=== PATIENT | male | born 1970 | race Caucasian/White ===

== ENCOUNTER 2016-11-07 20:44 | Emergency (ER) | payer BC ==
[~2016-11-07] VITALS: Ht 167.6 cm; Wt 76.2 kg
--- NOTE | ~2016-11-07 | CT4 ---
[facility] A Service of [facility] RADIOLOGY TEXT RESULTS PATIENT: MICHELLE SHARIF JR LOCATION: SED : 74 UNIT #: [id number] AGE: [address]: Una Ruiz SEX: M ORDER DR: [id number] [address] [address] [id number] MR#: [id number] #: [id number] NAME: MICHELLE SHARIF JR : 1970 SEX: M STUDY DATE/TIME: 11/07/2016 21:57 UNIT: SED ROOM: STUDY DESCRIPTION: CT Abd and Pelv Wo Cont Attending Physician: Una Ruiz Pa-C Ordering Physician: Una Ruiz Pa-C MEDICAL IMAGING REPORT This report is preliminary unless electronic signature is present. EXAM Abdomen and pelvis CT without HISTORY Right flank pain since this morning. COMMENT CT abdomen and pelvis performed without IV or oral contrast media using urinary tract stone protocol. Lack of intravenous oral contrast media limits evaluation for pathology other than urinary tract calculus disease. This CT exam was performed with one or more of the following radiation dose reduction techniques: automatic exposure control, adjustment of mA and/or kV according to patient size, and iterative reconstruction. COMPARISON There is a prior study from 02/28/2010 of the abdomen. FINDINGS There is a nodule in the right lower lobe laterally that measures about 5 mm in dimension. It is larger than it was 2010. It is therefore nonspecific and should be followed using Fleischmann's Society criteria depending upon the patient's risk factors until 2 years of stability is documented. CT Abdomen: The liver, spleen, adrenal glands, pancreas are grossly unremarkable on this noncontrast study. The gallbladder is partially contracted but otherwise unremarkable. There are no intrarenal calculi. There is no hydronephrosis. No ureteral calculus is seen. There is no evidence for bladder calculus. Visualized portions of the appendix are unremarkable. Evaluation of the remainder of the pelvis shows no free fluid in the pelvis. There is no suspicion for bowel obstruction. There are small [facility] A Service of [facility] RADIOLOGY TEXT RESULTS PATIENT: MICHELLE SHARIF JR [id number] 74 UNIT #: [id number] AGE: [address]: Una Ruiz SEX: M ORDER DR: fat-containing inguinal hernias bilaterally. There is no free intraperitoneal air. There is no evidence for abdominal aortic aneurysm. There are mild atherosclerotic vascular calcifications in the abdominal aorta. There is degenerative change of the lumbar spine with retrolisthesis of L5 on S1, loss of disc height, and vacuum disc formation. Some prominent Schmorl's nodes at the anterior-superior endplates of L2-L1. There are nonspecific prominent lymph nodes in the mesentery. 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 Please correlate further clinically. There are also an increased number of lymph nodes in the groin area bilaterally. If there is concern for lymphadenopathy, this is best pursued with a followup CT with IV and oral contrast media and this could be performed on a non emergent basis. IMPRESSION 1. There is no evidence for urinary tract calculus disease. Study is performed as a stone protocol and limited for evaluation for pathology other than urinary tract calculus disease. 2. Visualized appendix is unremarkable and there is nothing to suggest bowel obstruction or free air or drainable fluid collection. 3. Degenerative changes of the lumbar spine including degenerative retrolisthesis of L5 on S1 secondary to loss of disc height. 4. There are prominent lymph nodes in the mesentery and an increased number of lymph nodes in the inguinal regions bilaterally. Patient indicates a history of Ulisses-Russ virus. The prominent lymph nodes are nonspecific and I would recommend clinical followup. If more information is needed with respect lymphadenopathy, this is best pursued with a non emergent followup CT abdomen and pelvis with both IV and oral contrast media. 1. Dictated by... Kalli Dave M.D. THIS IS AN ELECTRONICALLY VERIFIED REPORT Kalli Dave M.D. at 11/10/2016 6:13 AM SAC/to TD: 11/08/2016 15:19 JOB #: [id number] MEDICAL IMAGING REPORT Page 1 of 1
[~2016-11-07 20:44] MED LIST: ?BP MED; ALPRAZOLAM ER0.5 MG PO; BYSTOLIC; BYSTOLIC10 MG PO; DIOVAN PO; FLEXERIL10 MG PO; LISINOPRIL PO; LISINOPRIL20 MG PO; LORTAB 7.5-5001 TAB PO; MEDROL4 MG/DOSE- PO; PRINIVIL10 MG; ROBITUSSIN A-C S5 ML PO; SUBOXONE 2 MG-1 EACH SL; SUBOXONE 8 MG-1 EAC1 PO; TOPROL XL PO; VOLTAREN75 MG PO; ZITHROMAX; ZITHROMAX PO
[2016-11-07] MEDS ORDERED: TOPROL XL PO (20:54)
[2016-11-07] MEDS ORDERED: ZESTRIL40 MG PO (20:54)
[2016-11-07 21:29] LABS: URINE SOURCE CLEAN CATCH
[2016-11-07 21:32] LABS: URINE APPEARANCE CLEAR; URINE BILIRUBIN NEG (NEG); URINE BLOOD NEG (NEG); URINE COLOR YELLOW; URINE GLUCOSE NEG (NORM); URINE KETONE NEG (NEG); URINE LEUKOCYTE ESTERASE NEG (NEG); URINE NITRATE NEG (NEG); URINE PH 6.5 (5-8); URINE PROTEIN NEG (NEG); URINE SPECIFIC GRAVITY 1.015 (1.003-1.035); URINE UROBILINOGEN 0.2 MG/DL (NORM)
[2016-11-07 21:36] LABS: MICRO INDICATED? NO
[2016-11-07 21:57] LABS: BASOPHIL% 0.9 % (0-2.5); EOSINOPHIL# 0.1 X10e3 (0-0.7); EOSINOPHIL% 2.3 % (0.0-7.0); HEMATOCRIT 41.3 % (38.0-50.0); HEMOGLOBIN 14.3 gm/dL (13.0-16.0); LYMPHOCYTE# 1.7 X10e3 (1.0-3.5); LYMPHOCYTE% 44.7 % (17.0-45.0); MEAN CELL VOLUME 87.9 FL (83-96); MEAN CORPUSCULAR HEMOGLOBIN 30.5 PG (28-34); MEAN CORPUSCULAR HGB CONC 34.7 g/dL (30-36); MEAN PLATELET VOLUME 7.8 FL (6.5-11.5); MONOCYTE# 0.7 X10e3 (0-1.0); MONOCYTE% 18.6 % (3.0-12.0); NEUTROPHIL# 1.3 X10e3 (1.5-7.1); NEUTROPHIL% 33.5 % (40-75); PLATELET COUNT 178 X10e3 (140-420); RED CELL DISTRIBUTION WIDTH 12.4 % (11.0-15.5); WHITE BLOOD COUNT 3.9 X10e3 (4.0-10.5)
[2016-11-07 22:00] LABS: DIFF IND NO
[2016-11-07 22:14] LABS: ALBUMIN SERUM 4.1 g/dL (3.5-5.0); BILIRUBIN,TOTAL 0.3 mg/dL (0.2-2.0); CALCIUM SERUM 8.7 mg/dL (8.4-10.2); GLOM FILT RATE Estimated 91.1 mL/min (>60); POTASSIUM 4.4 mmol/L (3.5-5.1); PROTEIN TOTAL SERUM 6.8 g/dL (6.0-8.3)
== END 2016-11-07 23:09 | disposition home or self-care (01) ==
LOC: SED 20:44
PROVIDERS: Physician Assistant
DX: M54.5 Low back pain (principal); I10 Essential (primary) hypertension
CPT/HCPCS: 36415; 74176; 80053; 81003; 85025; 96374; 99284; J1885